=== PATIENT | female | born 1975 | race Caucasian/White ===

== ENCOUNTER 2019-09-07 16:29 | Observation (INO) ==
[2019-09-07] MEDS ORDERED: *HR* Promethazine 25 MG/ML VIAL IVP ONE (17:12)
[2019-09-07] MEDS ORDERED: 0.9 % Sodium Chloride 1,000 ML IVC ONE (17:12)
[2019-09-07 17:29] LABS: Bilirubin,Urine Negative (Negative); Blood,Urine Trace (Negative); Clarity,Urine Cloudy (Clear); Color,Urine Yellow (Yellow); Glucose,Urine (UA) Normal (Normal); Ketones,Urine Trace mg/dL (Negative); Leukocyte Esterase,Urine Small (Negative); Nitrite,Urine Negative (Negative); Protein,Urine Negative (Neg-Trace); Specific Gravity,Urine 1.025 (1.010-1.025); Urobilinogen,Urine Normal (Normal)
[2019-09-07 17:32] LABS: Hyaline Casts,Urine None Seen per lpf (None-Few); Squamous Epithelial Cell,Urine Many per lpf (None-Few)
[2019-09-07] MEDS: *HR* FentaNYL (PF) 100 MCG/2 ML VIAL IVP ONE (17:47)
[2019-09-07 17:49] LABS: Bacteria,Urine Few per hpf (None-Few); RBC,Urine 0-3 per hpf (0-3)
[2019-09-07 17:59] LABS: Basophils % 0.6 %; Eosinophils % 0.3 %; Hematocrit 40.2 % (35.3-44.9); Hemoglobin 13.1 g/dL (11.5-15.4); Immature Granulocytes % 0.3 % (0-4); Lymphocytes # 1.7 K/mcL (0.6-4.6); Lymphocytes % 23.3 %; Mean Corpuscular HGB Conc 32.6 g/dL (31.6-35.5); Mean Corpuscular Hemoglobin 28.3 pg (28.0-33.3); Mean Corpuscular Volume 86.8 fL (83.0-100.0); Mean Platelet Volume 9.9 fL (9.4-12.4); Monocytes # 0.6 K/mcL (0.0-1.3); Monocytes % 7.6 %; Neutrophils # 4.9 K/mcL (1.6-8.9); Platelet Count 267 K/mcL (140-400); Red Blood Count 4.63 M/mcL (3.82-4.97); Red Cell Distribution Width 14.3 % (11.5-14.5); Segmented Neutrophils % 67.9 %; White Blood Count 7.2 K/mcL (4.3-11.1)
[2019-09-07] MEDS ORDERED: cefTRIAXone 1,000 MG in Water for inj. (sterile) 10 ML IVP ONE (18:05)
[2019-09-07 18:17] LABS: Alanine Aminotransferase 15 Units/L (7-52); Albumin 4.8 g/dL (3.5-5.7); Albumin/Globulin Ratio 1.7 (1.1-2.2); Alkaline Phosphatase 62 Units/L (34-104); Aspartate Amino Transferase 16 Units/L (13-39); BUN/Creatinine Ratio 12 (6-26); Bilirubin,Direct 0.1 mg/dL (0.0-0.2); Bilirubin,Indirect 0.3 mg/dL (0.0-1.0); Bilirubin,Total 0.4 mg/dL (0.3-1.0); Blood Urea Nitrogen 8 mg/dL (6-20); Calcium 9.7 mg/dL (8.6-10.3); Carbon Dioxide 26 mEq/L (23-29); Chloride 103 mEq/L (98-107); Glucose 88 mg/dL (70-105); Osmolality,Calculated 280 (280-300); Potassium 3.3 mEq/L (3.5-5.1); Sodium 136 mEq/L (136-145); Total Protein 7.6 g/dL (6.4-8.9); eGFR For African Americans > 60 (> 60); eGFR For Non-African Americans > 60 (> 60)
[2019-09-07 18:18] LABS: Globulin 2.8 g/dL (2.4-3.5); Lipase 17 Units/L (11-82)
[2019-09-07] MEDS ORDERED: *HR* Promethazine 25 MG/ML VIAL IVP PRN (20:43)
[2019-09-07] MEDS ORDERED: Naloxone 0.4 MG/ML INJ IVP PRN (20:43)
[2019-09-07] MEDS ORDERED: 0.9 % Sodium Chloride 1,000 ML IVC SCH (20:45)
[2019-09-07] MEDS ORDERED: *HR* OxyCODONE/APAP 5/325 TABLET PO PRN (20:45)
[2019-09-07] MEDS: Ketorolac 30 MG/ML VIAL IVP PRN (21:48)
[2019-09-07] MEDS: Pantoprazole 40 MG VIAL IVP SCH (22:27)
[2019-09-08] MEDS: Ketorolac 30 MG/ML VIAL IVP PRN (03:44)
[2019-09-08] MEDS: Ondansetron 4 MG/2 ML VIAL IVP PRN ×2 (03:45→12:24)
[2019-09-08 06:36] LABS: Hematocrit 34.8 % (35.3-44.9); Mean Corpuscular Volume 87.7 fL (83.0-100.0); Mean Platelet Volume 9.6 fL (9.4-12.4); Platelet Count 207 K/mcL (140-400); Red Blood Count 3.97 M/mcL (3.82-4.97); Red Cell Distribution Width 14.2 % (11.5-14.5); White Blood Count 5.4 K/mcL (4.3-11.1)
[2019-09-08 06:37] LABS: Hemoglobin 11.5 g/dL (11.5-15.4)
[2019-09-08 06:57] LABS: BUN/Creatinine Ratio 16 (6-26); Blood Urea Nitrogen 10 mg/dL (6-20); Calcium 8.7 mg/dL (8.6-10.3); Carbon Dioxide 27 mEq/L (23-29); Chloride 108 mEq/L (98-107); Glucose 95 mg/dL (70-105); Osmolality,Calculated 297 (280-300); Phosphorous 3.5 mg/dL (2.7-4.5); Potassium 3.4 mEq/L (3.5-5.1); Sodium 144 mEq/L (136-145); eGFR For African Americans > 60 (> 60); eGFR For Non-African Americans > 60 (> 60)
[2019-09-08] MEDS ORDERED: 0.9 % Sodium Chloride 1,000 ML IVC SCH (07:45)
[2019-09-08 09:17] LABS: INR 1.1; Prothrombin Time 12.4 Seconds (9.4-12.1)
[2019-09-08 09:20] LABS: Activated Partial Thrombo Time 34.5 Seconds (26.0-36.0)
[2019-09-08] MEDS ORDERED: *HR* FentaNYL (PF) 100 MCG/2 ML VIAL ONE (09:58)
[2019-09-08] MEDS ORDERED: *HR* Midazolam HCl 5 MG/5 ML VIAL IVP ONE ×2 (09:59→10:31)
[2019-09-08] MEDS: *HR* FentaNYL (PF) 100 MCG/2 ML VIAL IVP ONE (10:23)
[2019-09-08] MEDS ORDERED: Tetracaine/Benzocaine/Butamben 1 SPRAY AEROSOL MM ONE (10:31)
[2019-09-08] MEDS ORDERED: *HR* FentaNYL (PF) 100 MCG/2 ML VIAL IVP ONE (10:31)
[2019-09-08] MEDS ORDERED: Simethicone 40 MG/0.6 ML MLS IR ONE (10:31)
[2019-09-08] MEDS ORDERED: Gadolinium Contrast Agent (WT Based) IV PRN (10:42)
[2019-09-08] MEDS: Pantoprazole 40 MG VIAL IVP SCH (11:10)
[2019-09-08] MEDS: cefTRIAXone 1,000 MG in Water for inj. (sterile) 10 ML IVPB SCH (11:10)
[2019-09-08] MEDS: lisinopriL 5 MG TABLET PO SCH (13:13)
[2019-09-08] MEDS: *HR* OxyCODONE Immed Rel 5 MG TABLET PO PRN ×2 (14:50→20:00)
[2019-09-09] MEDS: *HR* OxyCODONE Immed Rel 5 MG TABLET PO PRN ×3 (02:20→12:39)
[2019-09-09] MEDS: Ondansetron 4 MG/2 ML VIAL IVP PRN ×2 (02:21→11:33)
[2019-09-09 05:48] LABS: Hematocrit 34.6 % (35.3-44.9); Hemoglobin 11.3 g/dL (11.5-15.4); Mean Corpuscular HGB Conc 32.7 g/dL (31.6-35.5); Mean Corpuscular Hemoglobin 28.6 pg (28.0-33.3); Mean Corpuscular Volume 87.6 fL (83.0-100.0); Mean Platelet Volume 10.2 fL (9.4-12.4); Platelet Count 207 K/mcL (140-400); Red Blood Count 3.95 M/mcL (3.82-4.97); Red Cell Distribution Width 14.3 % (11.5-14.5); White Blood Count 5.5 K/mcL (4.3-11.1)
[2019-09-09 06:07] LABS: BUN/Creatinine Ratio 15 (6-26); Blood Urea Nitrogen 9 mg/dL (6-20); Calcium 8.7 mg/dL (8.6-10.3); Carbon Dioxide 24 mEq/L (23-29); Chloride 109 mEq/L (98-107); Glucose 88 mg/dL (70-105); Osmolality,Calculated 288 (280-300); Potassium 3.5 mEq/L (3.5-5.1); Sodium 140 mEq/L (136-145); eGFR For African Americans > 60 (> 60); eGFR For Non-African Americans > 60 (> 60)
[2019-09-09] MEDS: cefTRIAXone 1,000 MG in Water for inj. (sterile) 10 ML IVPB SCH (08:00)
[2019-09-09] MEDS: lisinopriL 5 MG TABLET PO SCH (08:00)
[2019-09-09] MEDS ORDERED: ALPRAZolam 1 MG TABLET PO PRN (11:19)
[2019-09-09 15:32] VITALS: BP 122/66
== END 2019-09-09 17:29 | disposition home or self-care (01) ==
LOC: 3BNU 16:29 → EMEROOARM 16:29 → 3BNU 20:35
PROVIDERS: ADMIT Student in an Organized Health Care Education/Training Program; ATTEND Student in an Organized Health Care Education/Training Program
PROC: ENDOEBX (2019-09-08 10:00)